=== PATIENT | female | born 1985 | race Caucasian/White ===

== ENCOUNTER 2016-11-08 09:11 | Inpatient (IN) | payer BC ==
[2016-11-08 17:05] VITALS: BMI 24.8
--- NOTE | 2016-11-08 17:42 | HP ---
CIWA Score - CIWA Score Nausea/Vomitin-Mild Nausea/No Vomiting Muscle Tremors: 4-Moderate,w/Arms Extend Anxiety: 4-Mod. Anxious/Guarded Agitation: 4-Moderately Restless Paroxysmal Sweats: 1-Minimal Palms Moist Orientation: 0-Oriented Tacttile Disturbances: 3-Moderate Itch/Numb/Burn Auditory Disturbances: 0-None Visual Disturbances: 0-None Headache: 1-Very Mild CIWA-Ar Total Score: 18 Admission ROS S - HPI Chief Complaint: withdrawal sx Allergies/Adverse Reactions: Allergies Allergy/AdvReac Type Severity Reaction Status Date / Time No Known Allergies Allergy Verified 11/08/16 11:10 History of Present Illness: 31 years old female with long history of alcohol dependence has hypothyroid and fibro myogia and depression and anxiety is admitted to detox Exam Limitations: No Limitations - Ebola screening Have you traveled outside of the country in the last 21 days: No Have you had contact with anyone from an Ebola affected area: No Have you been sick,other than usual withdrawal symptoms: No Do you have a fever: No - Review of Systems Constitutional: Chills, Changes in sleep, Weight Stable EENT: reports: No Symptoms Reported Respiratory: reports: No Symptoms reported Cardiac: reports: No Symptoms Reported GI: reports: Nausea, Poor Fluid Intake, Abdominal cramping : reports: No Symptoms Reported, Other (nephrotitis 2016) Musculoskeletal: reports: Joint Pain (right ankle), Muscle Weakness (right leg) Integumentary: reports: Pruritus (withdrawl) Neuro: reports: Seizure (pseudo seizure 1/month), Tremors Endocrine: reports: Intolerance to Heat Hematology: reports: No Symptoms Reported Psychiatric: reports: Judgement Intact, Orientated x3, Anxious Other Systems: Reviewed and Negative Patient History - Patient Medical History Hx Anemia: No Hx Asthma: No Hx Chronic Obstructive Pulmonary Disease (COPD): No Hx Cancer: No Hx Cardiac Disorders: No Hx Congestive Heart Failure: No Hx Hypertension: No Hx Hypercholesterolemia: No Hx Pacemaker: No HX Cerebrovascular Accident: No Hx Seizures: Yes (alcohol withdrawl related treated with neurologist) Hx Dementia: No Hx Diabetes: No Hx Gastrointestinal Disorders: No Hx Liver Disease: No Hx Genitourinary Disorders: No Hx Sexually Transmitted Disorders: No Hx Renal Disease (ESRD): No Hx Thyroid Disease: Yes Hx Human Immunodeficiency Virus (HIV): No Hx Hepatitis C: No Hx Depression: Yes Hx Suicide Attempt: Yes (took a friend's methadone a month ago) Hx Bipolar Disorder: No Hx Schizophrenia: No - Patient Surgical History Past Surgical History: Yes Hx Neurologic Surgery: No Hx Cataract Extraction: No Hx Cardiac Surgery: No Hx Lung Surgery: No Hx Breast Surgery: No Hx Breast Biopsy: No Hx Abdominal Surgery: Yes (removal of ovarian cyst in 2002 bilaterally) Hx Appendectomy: No (2011 gastric by pass) Hx Cholecystectomy: No Hx Genitourinary Surgery: No Hx Section: No Hx Orthopedic Surgery: No Hx Hysterectomy: No Other Surgical History: thyroid ca/thyroidectomy in 2002 Anesthesia Reaction: No - PPD History Previous Implant?: Yes Documented Results: Negative w/o proof Implanted On Prior R Admission?: No PPD to be Administered?: Yes - Reproductive History Patient is a Female of Child Bearing Age (11 -55 yrs old): Yes Last Menstrual Period: 11/08/16 Patient : No - Smoking Cessation Smoking history: Never smoked Have you smoked in the past 12 months: No Hx Chewing Tobacco Use: No Initiated information on smoking cessation: No - Substance & Tx. History Hx Alcohol Use: Yes Hx Substance Use: No Substance Use Type: Alcohol Hx Substance Use Treatment: Yes - Substances Abused Alcohol-vodka Route: Oral Frequency: Daily Amount used: 1-2 pts. volka Age of first use: 15 Date of Last Use: 11/08/16 Marijuana Route: Smoking Frequency: Daily Amount used: $5 Age of first use: 17 Date of Last Use: 11/07/16 Family Disease History - Family Disease History Family Disease History: Heart Disease: Mother Other Family History: only child Admission Physical Exam BHS - Vital Signs Vital Signs: Vital Signs - 24 hr 11/08/16 11/08/16 17:02 17:30 Temperature 96.4 F L 96.4 F L Pulse Rate 122 H 122 H Respiratory 20 20 Rate Blood Pressure 147/86 147/86 - Physical General Appearance: Yes: Appropriately Dressed, Alcohol on Breath, Tremorous, Irritable, Sweating, Anxious HEENTM: Yes: Hearing grossly Normal, Normal ENT Inspection, Normocephalic, Normal Voice Respiratory: Yes: Chest Non-Tender, Lungs Clear, Normal Breath Sounds, No Respiratory Distress, No Accessory Muscle Use Neck: Yes: Supple, Trachea in good position, Other (scar from partial thyroidectomy) Breast: Yes: Breasts Symetrical Cardiology: Yes: Regular Rhythm, S1, S2, Tachycardia Abdominal: Yes: Non Tender, Soft, Surgical Scar (gastric by pass 2011) Genitourinary: Yes: Within Normal Limits Back: Yes: Normal Inspection Musculoskeletal: Yes: Gait Steady (cane), Joint swelling (right ankle strain - 10/25/16) Extremities: Yes: Non-Tender, Tremors Neurological: Yes: Alert, Normal Response, Depressed Affect Integumentary: Yes: Warm Lymphatic: Yes: Within Normal Limits - Diagnostic (1) Alcohol dependence with uncomplicated withdrawal Current Visit: Yes Status: Acute (2) Hypothyroid Current Visit: Yes Status: Chronic Qualifiers: Hypothyroidism type: acquired Qualified Code(s): E03.9 - Hypothyroidism, unspecified (3) S/P gastric bypass Current Visit: Yes Status: Resolved (4) S/P removal of thyroid nodule Current Visit: Yes Status: Resolved (5) Fibromyalgia affecting multiple sites Current Visit: Yes Status: Chronic (6) Right ankle sprain Current Visit: Yes Status: Acute Qualifiers: Encounter type: subsequent encounter Involved ligament of ankle: unspecified ligament Qualified Code(s): S93.401D - Sprain of unspecified ligament of right ankle, subsequent encounter (7) Use of cane as ambulatory aid Current Visit: Yes Status: Acute (8) Depression (emotion) Current Visit: Yes Status: Suspected Qualifiers: Depression Type: dysthymia Qualified Code(s): F34.1 - Dysthymic disorder Cleared for Admission [facility] - Detox or Rehab [facility] Level of Care: Medically Managed Detox Regimen/Protocol: Librium [facility] Breath Alcohol Content Breath Alcohol Content: 0.210 Urine Pregancy Test - Result Urine Test Results: Negative- NO Line Present Urine Drug Screen - Results Drug Screen Negative: Yes
[2016-11-08] MEDS ORDERED: ACETAMINOPHEN 325 MG TABLET (FP) PO PRN (17:54)
[2016-11-08] MEDS ORDERED: MAG HYDROX/AL HYDROX/SIMETH 30 ML UNIT-DOSE CUP PO PRN (17:54)
[2016-11-08] MEDS ORDERED: MENTHOL/PHENOL 1 EACH UD MM PRN (17:54)
[2016-11-08] MEDS ORDERED: MAGNESIUM HYDROX 2400MG/30ML ORAL SUSPENSION 30 ML CUP PO PRN (17:54)
[2016-11-08] MEDS ORDERED: MAGNESIUM CITRATE 300 ML BOTTLE PO PRN (17:54)
[2016-11-08] MEDS ORDERED: P-EPHED 60MG/TRIPROLIDI 2.5MG TABLET PO PRN (17:54)
[2016-11-08] MEDS ORDERED: guaiFENesin/D-METHORPHAN HB 10 ML UNIT-DOSE CUPS PO PRN (17:54)
[2016-11-08] MEDS ORDERED: LOPERAMIDE HCL 2 MG CAPSULE PO PRN (17:54)
[2016-11-08] MEDS ORDERED: LEVOTHYROXINE NA 125 MCG TABLET (FP) PO SCH (18:15)
[2016-11-08] MEDS ORDERED: chlordiazePOXIDE HCL 25 MG CAPSULE PO ONE (19:00)
[2016-11-08] MEDS: diphenhydrAMINE HCL 50 MG CAPSULE PO PRN (22:29)
[2016-11-08] MEDS: chlordiazePOXIDE HCL 25 MG CAPSULE PO SCH (22:29)
[2016-11-08] MEDS: GABAPENTIN 400 MG CAPSULE (FP) PO SCH (22:29)
[2016-11-08] MEDS: THIAMINE HCL 100 MG TABLET (FP) PO SCH (22:30)
[2016-11-09] MEDS: GABAPENTIN 400 MG CAPSULE (FP) PO SCH ×3 (06:19→22:28)
[2016-11-09] MEDS: chlordiazePOXIDE HCL 25 MG CAPSULE PO SCH ×4 (06:19→22:32)
[2016-11-09] MEDS ORDERED: LEVOTHYROXINE NA 25 MCG TABLET (FP) ONE (06:20)
[2016-11-09] MEDS ORDERED: LEVOTHYROXINE NA 100 MCG TABLET (FP) ONE (06:20)
[2016-11-09] MEDS: LEVOTHYROXINE 25 MCG, LEVOTHYROXINE 100 MCG PO SCH (06:22)
[2016-11-09 10:18] LABS: MCH 31.5 pg (25.7-33.7); MCHC 33.9 g/dl (32.0-36.0); MEAN CELL VOLUME 92.9 fl (80-96); MEAN PLT VOLUME 8.7 fl (7.5-11.1); PLATELET COUNT 217 K/MM3 (134-434); RDW 13.8 % (11.6-15.6); WHITE BLOOD COUNT 6.7 K/mm3 (4.0-10.0)
[2016-11-09] MEDS: PRENATAL VITAMINS W/ FOLIC ACID TABLET (FP) PO SCH (10:51)
[2016-11-09] MEDS: cloNIDine HCL 0.1 MG TABLET PO PRN ×2 (10:51→22:27)
[2016-11-09 11:02] LABS: ALBUMIN 4.1 g/dl (3.4-5.0); ALK PHOS 64 U/L (45-117); ANION GAP 15 (8-16); BILIRUBIN,TOTAL 2.2 mg/dL (0.2-1.0); CALCIUM 9.9 mg/dL (8.5-10.1); CO2 28 mmol/L (21-32); CREATININE 0.8 mg/dL (0.55-1.02); GLUCOSE,RANDOM 103 mg/dL (74-106); SGOT/AST 43 U/L (15-37); SGPT/ALT 35 U/L (12-78); TOT PROT 7.2 g/dl (6.4-8.2)
[2016-11-09 12:25] LABS: HIV 1 & 2 AB NEGATIVE; HIV 1 AGp24 NEGATIVE
--- NOTE | 2016-11-09 13:47 | CONSULT ---
[facility] Psychiatric Consult - Data Date of interview: 11/09/16 Admission source: [facility] Identifying data: First admission to [facility] for this 31 y/o female seeking detox treatment on for alcohol and marijuana dependence.Patient is without children,domiciled,unemployed and supported by her " ex- ". Substance Abuse History: - Smoking Cessation. Smoking history: Never smoked. Have you smoked in the past 12 months: No. Hx Chewing Tobacco Use: No. Initiated information on smoking cessation: No. - Substance & Tx. History. Hx Alcohol Use: Yes. Hx Substance Use: No. Substance Use Type: Alcohol. Hx Substance Use Treatment: Yes. - Substances Abused. Alcohol-vodka. Route: Oral. Frequency: Daily. Amount used: 1-2 pts. volka. Age of first use: 15. Date of Last Use: 11/08/16. Marijuana. Route: Smoking. Frequency: Daily. Amount used: $5. Age of first use: 17. Date of Last Use: 11/07/16. Confirmed by patient. Medical History: Fibromyalgia,right ankle sprain,withdrawal-related and a history of surgeries (thyroidectomy in 2002 for cancer of thyroid,gastric bypass in 2011 and removal of bilateral ovarian cyst in 2002). Psychiatric History: First and only psychiatric hospitalization at [facility] ([facility] a month ago.Circumstances : overdose with heroin/mood dysregulation.Diagnosed with Anxiety Disorder and MDD.Was prescribed buspar ( non compliant) and neurontin.Ms Solitario is seeing a private psychiatrist for medication management (klonopin). Physical/Sexual Abuse/Trauma History: Not discussed. Additional Comment: Drug Screen is negative. Mental Status Exam - Mental Status Exam Alert and Oriented to: Time, Place, Person Cognitive Function: Good Patient Appearance: Unkempt, Disheveled Mood: Nervous, Withdrawn, Anxious Affect: Mood Congruent Patient Behavior: Fatigued, Appropriate, Cooperative Speech Pattern: Clear Voice Loudness: Normal Thought Process: Goal Oriented Thought Disorder: Not Present Hallucinations: Denies Suicidal Ideation: Denies Homicidal Ideation: Denies Insight/Judgement: Poor Sleep: Poorly, Difficulty falling asleep (wants trazodone) Appetite: Good Muscle strength/Tone: Normal Gait/Station: Other (uses a cane for ambulation; right leg in a splint) Psychiatric Findings - Problem List ([place]ylie 1, 2,3) (1) Alcohol dependence with uncomplicated withdrawal Current Visit: Yes Status: Acute (2) Substance-induced anxiety disorder Current Visit: Yes Status: Acute (3) Mood disorder Current Visit: Yes Status: Acute (4) Right ankle sprain Current Visit: Yes Status: Acute Qualifiers: Encounter type: subsequent encounter Involved ligament of ankle: unspecified ligament Qualified Code(s): S93.401D - Sprain of unspecified ligament of right ankle, subsequent encounter (5) Fibromyalgia affecting multiple sites Current Visit: Yes Status: Chronic (6) Hypothyroid Current Visit: Yes Status: Chronic Qualifiers: Hypothyroidism type: acquired Qualified Code(s): E03.9 - Hypothyroidism, unspecified (7) S/P gastric bypass Current Visit: Yes Status: Resolved (8) S/P removal of thyroid nodule Current Visit: Yes Status: Resolved (9) Use of cane as ambulatory aid Current Visit: Yes Status: Acute (10) Insomnia Current Visit: Yes Status: Acute - Initial Treatment Plan Initial Treatment Plan: Psychoeducation.Detoxification.Trazodone 50 mg po hs.Side effects/benefits discussed with patient.She agrees with careplan.Observation.
[2016-11-09] MEDS: IBUPROFEN 400 MG TABLET (FP) PO PRN ×2 (14:28→19:44)
[2016-11-09] MEDS: chlordiazePOXIDE HCL 25 MG CAPSULE PO PRN ×2 (14:28→19:45)
[2016-11-09] MEDS ORDERED: POTASSIUM CHLORIDE TABS 20 MEQ TABLET.ER (FP) PO ONE (14:38)
--- NOTE | 2016-11-09 14:38 | PN ---
[facility] CIWA - CIWA Score Nausea/Vomitin Muscle Tremors: 3 Anxiety: 3 Agitation: 2 Paroxysmal Sweats: 1-Minimal Palms Moist Orientation: 0-Oriented Tacttile Disturbances: 1-Very Mild Itch/Numbness Auditory Disturbances: 1-Very Mild Visual Disturbances: 1-Very Mild Sensitivity Headache: 2-Mild CIWA-Ar Total Score: 17 BHS Progress Note (SOAP) Subjective: ALERT,IRRITABLE,ANXIOUS,INTERRUPTED SLEEP,TREMOR,PAIN IN THE BODY AND BACK Objective: 11/09/16 14:34 Vital Signs Temperature 98.6 F 11/09/16 10:40 Pulse Rate 88 11/09/16 10:40 Respiratory Rate 16 11/09/16 10:40 Blood Pressure 141/85 11/09/16 10:40 O2 Sat by Pulse Oximetry (%) EKG SINUS RHYTHM WITH SINUS ARRHYTHMIA Laboratory Last Values WBC 6.7 K/mm3 (4.0-10.0) 11/09/16 07:40 RBC 4.63 M/mm3 (3.60-5.2) 11/09/16 07:40 Hgb 14.6 GM/dL (10.7-15.3) 11/09/16 07:40 Hct 43.0 % (32.4-45.2) 11/09/16 07:40 MCV 92.9 fl (80-96) 11/09/16 07:40 MCHC 33.9 g/dl (32.0-36.0) 11/09/16 07:40 RDW 13.8 % (11.6-15.6) 11/09/16 07:40 Plt Count 217 K/MM3 (134-434) 11/09/16 07:40 MPV 8.7 fl (7.5-11.1) 11/09/16 07:40 Sodium 138 mmol/L (136-145) 11/09/16 07:40 Potassium 3.2 mmol/L (3.5-5.1) L 11/09/16 07:40 Chloride 95 mmol/L (98-107) L 11/09/16 07:40 Carbon Dioxide 28 mmol/L (21-32) 11/09/16 07:40 Anion Gap 15 (8-16) 11/09/16 07:40 BUN 8 mg/dL (7-18) 11/09/16 07:40 Creatinine 0.8 mg/dL (0.55-1.02) 11/09/16 07:40 Creat Clearance w eGFR > 60 (>60) 11/09/16 07:40 Random Glucose 103 mg/dL (74-106) 11/09/16 07:40 Calcium 9.9 mg/dL (8.5-10.1) 11/09/16 07:40 Total Bilirubin 2.2 mg/dL (0.2-1.0) H 11/09/16 07:40 AST 43 U/L (15-37) H 11/09/16 07:40 ALT 35 U/L (12-78) 11/09/16 07:40 Alkaline Phosphatase 64 U/L (45-117) 11/09/16 07:40 Total Protein 7.2 g/dl (6.4-8.2) 11/09/16 07:40 Albumin 4.1 g/dl (3.4-5.0) 11/09/16 07:40 TSH 10.40 uIU/ml (0.358-3.74) H 11/09/16 07:40 RPR Titer Nonreactive (NONREACTIVE) 11/09/16 07:40 HIV 1&2 Antibody Screen Negative 11/09/16 07:40 HIV P24 Antigen Negative 11/09/16 07:40 Assessment: 11/09/16 14:36 WITHDRAWAL SYMPTOM Plan: CONTINUE DETOX,K IS 3.2 HYPOKALEMIA,K DUR 20 MEQ PO NOW THEN BID,REPEAT BMP ON Fri11/11/16
--- NOTE | 2016-11-09 14:43 | PN ---
S Progress Note Note: ADDENDUM BILIRUBIN 2.2,K 3.2,KDUR REPLACEMENT,REPEAT CMP ON Fri11/11/16
[2016-11-09] MEDS: hydrOXYzine PAMOATE 50 MG CAPSULE (FP) PO PRN (20:10)
[2016-11-09] MEDS: THIAMINE HCL 100 MG TABLET (FP) PO SCH (22:27)
[2016-11-09] MEDS: POTASSIUM CHLORIDE TABS 20 MEQ TABLET.ER (FP) PO SCH (22:28)
[2016-11-09] MEDS: traZODone HCL 50 MG TABLET (FP) PO SCH (22:29)
[2016-11-09] MEDS: diphenhydrAMINE HCL 50 MG CAPSULE PO PRN (22:31)
[2016-11-09 22:41] LABS: URINE APPEARANCE SLCLOUDY; URINE BILIRUBIN NEGATIVE (NEGATIVE); URINE COLOR AMBER; URINE GLUCOSE (UA) NEGATIVE (NEGATIVE); URINE KETONE TRACE (NEGATIVE); URINE LEUK ESTERASE NEGATIVE (NEGATIVE); URINE NITRITE NEGATIVE (NEGATIVE); URINE UROBILINOGEN NEGATIVE E.U./dl (0.2-1.0)
[2016-11-09 22:48] LABS: URINE BLOOD 3+ (NEGATIVE); URINE PROTEIN 1+ (NEGATIVE)
[2016-11-09 22:50] LABS: URINE BACTERIA MANY /hpf (NONE SEEN); URINE HYALINE CAST 2 /lpf; URINE MUCUS MANY; URINE RBC 1 /hpf (0-3); URINE WBC 6 /hpf (3-5)
[2016-11-10] MEDS: chlordiazePOXIDE HCL 25 MG CAPSULE PO SCH ×3 (05:45→17:31)
[2016-11-10] MEDS: GABAPENTIN 400 MG CAPSULE (FP) PO SCH ×3 (05:46→22:29)
[2016-11-10] MEDS ORDERED: LEVOTHYROXINE NA 25 MCG TABLET (FP) ONE (05:47)
[2016-11-10] MEDS: IBUPROFEN 400 MG TABLET (FP) PO PRN ×2 (05:47→19:31)
[2016-11-10] MEDS ORDERED: LEVOTHYROXINE NA 100 MCG TABLET (FP) ONE (05:47)
[2016-11-10] MEDS: LEVOTHYROXINE 25 MCG, LEVOTHYROXINE 100 MCG PO SCH (06:14)
[2016-11-10] MEDS: hydrOXYzine PAMOATE 50 MG CAPSULE (FP) PO PRN (08:52)
[2016-11-10] MEDS: chlordiazePOXIDE HCL 25 MG CAPSULE PO PRN ×3 (08:52→19:31)
[2016-11-10] MEDS: PRENATAL VITAMINS W/ FOLIC ACID TABLET (FP) PO SCH (10:21)
[2016-11-10] MEDS: POTASSIUM CHLORIDE TABS 20 MEQ TABLET.ER (FP) PO SCH ×2 (10:21→22:29)
--- NOTE | 2016-11-10 11:53 | PN ---
[facility] CIWA - CIWA Score Nausea/Vomitin Muscle Tremors: 3 Anxiety: 3 Agitation: 2 Paroxysmal Sweats: 1-Minimal Palms Moist Orientation: 0-Oriented Tacttile Disturbances: 1-Very Mild Itch/Numbness Auditory Disturbances: 1-Very Mild Visual Disturbances: 1-Very Mild Sensitivity Headache: 2-Mild CIWA-Ar Total Score: 17 BHS Progress Note (SOAP) Subjective: ALERT,IRRITABLE,ANXIOUS,INTERRUPTED SLEEP,TREMOR Objective: 11/10/16 11:51 Vital Signs Temperature 98.1 F 11/10/16 10:24 Pulse Rate 118 H 11/10/16 10:24 Respiratory Rate 20 11/10/16 10:24 Blood Pressure 114/90 11/10/16 10:24 O2 Sat by Pulse Oximetry (%) Laboratory Results - last 24 hr 11/09/16 11/09/16 11/09/16 07:40 07:40 22:07 Urine Color Anna Urine Appearance Slcloudy Urine pH 6.0 Ur Specific Leonard 1.010 Urine Protein 1+ H Urine Glucose (UA) Negative Urine Ketones Trace H Urine Blood 3+ H Urine Nitrite Negative Urine Bilirubin Negative Urine Urobilinogen Negative Ur Leukocyte Esterase Negative Urine RBC 1 Urine WBC 6 Ur Epithelial Cells Rare Urine Bacteria Many Hyaline Casts 2 Urine Mucus Many RPR Titer Nonreactive HIV 1&2 Antibody Screen Negative HIV P24 Antigen Negative Assessment: 11/10/16 11:52 WITHDRAWAL SYMPTOM Plan: CONTINUE DETOX,ENCOURAGE ORAL FLUID
--- NOTE | 2016-11-10 12:20 | PN ---
[facility] Progress Note Note: ADDENDUM HISTORY OF PANCREATITIS IN THE PAST,FREQUENCY ON URINATION,MILD PAIN IN EPIGASTRIUM, CBC,CMP,AMYLASE,LIPASE IN AM,REPEAT UA,PSYCHIATRIC EVALUATION FOR MEDICATIONS REQUESTED BY PATIENT
[2016-11-10 19:43] LABS: URINE APPEARANCE SLCLOUDY; URINE BILIRUBIN NEGATIVE (NEGATIVE); URINE COLOR LTYELLOW; URINE GLUCOSE (UA) NEGATIVE (NEGATIVE); URINE KETONE NEGATIVE (NEGATIVE); URINE NITRITE NEGATIVE (NEGATIVE); URINE PROTEIN NEGATIVE (NEGATIVE); URINE UROBILINOGEN NEGATIVE E.U./dl (0.2-1.0)
[2016-11-10 19:52] LABS: URINE BLOOD 2+ (NEGATIVE); URINE LEUK ESTERASE 1+ (NEGATIVE)
[2016-11-10 20:11] LABS: URINE MUCUS RARE; URINE RBC 11 /hpf (0-3); URINE WBC 8 /hpf (3-5)
[2016-11-10] MEDS: chlordiazePOXIDE 5 MG CAPSULE PO SCH (22:29)
[2016-11-10] MEDS: THIAMINE HCL 100 MG TABLET (FP) PO SCH (22:29)
[2016-11-10] MEDS: cloNIDine HCL 0.1 MG TABLET PO PRN (22:29)
[2016-11-10] MEDS: traZODone HCL 50 MG TABLET (FP) PO SCH (22:29)
[2016-11-11] MEDS ORDERED: LEVOTHYROXINE NA 25 MCG TABLET (FP) ONE (05:01)
[2016-11-11] MEDS ORDERED: LEVOTHYROXINE NA 100 MCG TABLET (FP) ONE (05:02)
[2016-11-11] MEDS: GABAPENTIN 400 MG CAPSULE (FP) PO SCH ×3 (05:35→22:19)
[2016-11-11] MEDS: chlordiazePOXIDE 5 MG CAPSULE PO SCH ×3 (05:36→16:56)
[2016-11-11] MEDS: IBUPROFEN 400 MG TABLET (FP) PO PRN (05:38)
[2016-11-11] MEDS: LEVOTHYROXINE 25 MCG, LEVOTHYROXINE 100 MCG PO SCH (06:16)
[2016-11-11] MEDS: hydrOXYzine PAMOATE 50 MG CAPSULE (FP) PO PRN ×2 (07:45→19:38)
--- NOTE | 2016-11-11 08:46 | PN ---
[facility] Progress Note (SOAP) Subjective: interrupted sleep,severe anxiety Objective: 11/11/16 08:44 Vital Signs Temperature 97.2 F L 11/11/16 06:00 Pulse Rate 72 11/11/16 06:00 Respiratory Rate 16 11/11/16 06:00 Blood Pressure 98/63 11/11/16 06:00 O2 Sat by Pulse Oximetry (%) Laboratory Tests 11/09/16 11/09/16 11/09/16 07:40 07:40 07:40 WBC 6.7 RBC 4.63 Hgb 14.6 Hct 43.0 MCV 92.9 MCHC 33.9 RDW 13.8 Plt Count 217 MPV 8.7 Sodium 138 Potassium 3.2 L Chloride 95 L Carbon Dioxide 28 Anion Gap 15 BUN 8 Creatinine 0.8 Creat Clearance w eGFR > 60 Random Glucose 103 Calcium 9.9 Total Bilirubin 2.2 H AST 43 H ALT 35 Alkaline Phosphatase 64 Total Protein 7.2 Albumin 4.1 TSH 10.40 H Urine Color Urine Appearance Urine pH Ur Specific [place] Urine Protein Urine Glucose (UA) Urine Ketones Urine Blood Urine Nitrite Urine Bilirubin Urine Urobilinogen Ur Leukocyte Esterase Urine RBC Urine WBC Ur Epithelial Cells Urine Bacteria Hyaline Casts Urine Mucus RPR Titer HIV 1&2 Antibody Screen Negative HIV P24 Antigen Negative 11/09/16 11/09/16 11/10/16 07:40 22:07 Unknown WBC RBC Hgb Hct MCV MCHC RDW Plt Count MPV Sodium Potassium Chloride Carbon Dioxide Anion Gap BUN Creatinine Creat Clearance w eGFR Random Glucose Calcium Total Bilirubin AST ALT Alkaline Phosphatase Total Protein Albumin TSH Urine Color Anna Ltyellow Urine Appearance Slcloudy Slcloudy Urine pH 6.0 6.0 Ur Specific [place] 1.010 <= 1.005 Urine Protein 1+ H Negative Urine Glucose (UA) Negative Negative Urine Ketones Trace H Negative Urine Blood 3+ H 2+ H Urine Nitrite Negative Negative Urine Bilirubin Negative Negative Urine Urobilinogen Negative Negative Ur Leukocyte Esterase Negative 1+ H Urine RBC 1 11 Urine WBC 6 8 Ur Epithelial Cells Rare Few Urine Bacteria Many Hyaline Casts 2 Urine Mucus Many Rare RPR Titer Nonreactive HIV 1&2 Antibody Screen HIV P24 Antigen pt aox3 , crying, upset, anxiety 11/11/16 11:25 11/11/16 11:25 11/11/16 11:26 Assessment: 11/11/16 11:24 WITHDRAWAL SX;S ANXIETY RT ANKLE SPRAIN HYPOTHYROIDISM 11/11/16 11:25 11/11/16 11:26 11/11/16 11:27 Plan: CONT. DETOXX INCREASE FLUIDS PYSCH RE-EVAL. D/C IN AM
[2016-11-11] MEDS: POTASSIUM CHLORIDE TABS 20 MEQ TABLET.ER (FP) PO SCH ×2 (10:06→22:19)
[2016-11-11] MEDS: PRENATAL VITAMINS W/ FOLIC ACID TABLET (FP) PO SCH (10:06)
[2016-11-11 10:08] LABS: ALBUMIN 4.3 g/dl (3.4-5.0); ANION GAP 9 (8-16); BILIRUBIN,TOTAL 1.1 mg/dL (0.2-1.0); CALCIUM 10.3 mg/dL (8.5-10.1); CO2 30 mmol/L (21-32); GLUCOSE,RANDOM 115 mg/dL (74-106); MCH 31.8 pg (25.7-33.7); MCHC 33.6 g/dl (32.0-36.0); MEAN CELL VOLUME 94.7 fl (80-96); MEAN PLT VOLUME 9.2 fl (7.5-11.1); PLATELET COUNT 186 K/MM3 (134-434); RDW 14.1 % (11.6-15.6); SGOT/AST 73 U/L (15-37); SGPT/ALT 53 U/L (12-78); TOT PROT 7.3 g/dl (6.4-8.2)
[2016-11-11 10:09] LABS: ALK PHOS 56 U/L (45-117)
[2016-11-11 10:42] LABS: AMYLASE 75 U/L (25-115)
[2016-11-11] MEDS ORDERED: HALOPERIDOL 5 MG TABLET (FP) PO STA (11:35)
[2016-11-11] MEDS ORDERED: diphenhydrAMINE HCL 50 MG CAPSULE PO STA (11:36)
[2016-11-11] MEDS ORDERED: diphenhydrAMINE HCL 25 MG CAPSULE (FP) PO ONE (11:47)
--- NOTE | 2016-11-11 11:47 | PN ---
Psychiatric Progress Note Vital Signs: Vital Signs Period Temp Pulse Resp BP Sys/Antunez Pulse Ox Last 24 Hr 97.2 F-98.2 F 72-142 16-20 98-133/63-86 Date of Session: 11/11/16 Chief Complaint:: Agitation, insomnia HPI: Patient reprots insomnia, agitation, anxiety , crying spells, placement issues and personal problems, asking ti change Trazodone to 200mg po qhs she has been taking prior to admission with good response, asking pharmacological interventtion to reduce ansietya dnagitayion she has Current Medications: Active Medications Generic Name Dose Route Start Last Admin Trade Name Freq PRN Reason Stop Dose Admin Acetaminophen 650 mg 11/08/16 17:54 Tylenol - PO Q4H PRN FEVER OR PAIN Al Hydroxide/Mg Hydroxide 30 ml 11/08/16 17:54 Mylanta Oral Suspension - PO Q6H PRN DYSPEPSIA Chlordiazepoxide HCl 10 mg 11/11/16 23:00 Librium - PO 11/12/16 17:01 [id number] SARITHA Chlordiazepoxide HCl 25 mg 11/08/16 17:54 11/10/16 19:31 Librium - PO 11/11/16 17:53 25 mg Q4H PRN Administration WITHDRAWAL(CONT SUBST) Chlordiazepoxide HCl 15 mg 11/10/16 23:00 11/11/16 10:06 Librium - PO 11/11/16 17:01 15 mg [id number] SARITHA Administration Clonidine 0.1 mg 11/08/16 17:56 11/10/16 22:29 Catapres - PO 0.1 mg Q6H PRN Administration HYPERTENSION Diphenhydramine HCl 50 mg 11/08/16 22:00 11/09/16 22:31 Benadryl - PO 50 mg HSMR1 PRN Administration INSOMNIA Diphenhydramine HCl 50 mg 11/11/16 11:36 Benadryl - PO 11/11/16 11:37 NOW STA Eucalyptus/Menthol/Phenol/Sorbitol 1 each 11/08/16 17:54 Cepastat Lozenge - MM Q4H PRN SORE THROAT Gabapentin 400 mg 11/08/16 22:00 11/11/16 05:35 Neurontin - PO 400 mg TID SARITHA Administration Guaifenesin 10 ml 11/08/16 17:54 Robitussin Dm - PO Q6H PRN COUGH Haloperidol 5 mg 11/11/16 11:35 Haldol - PO 11/11/16 11:36 NOW STA Haloperidol 1 mg 11/11/16 11:36 Haldol - PO Q4HWA PRN AGITATION Hydroxyzine Pamoate 50 mg 11/09/16 20:01 11/11/16 07:45 Vistaril - PO 50 mg Q4H PRN Administration AGITATION Ibuprofen 400 mg 11/08/16 17:54 11/11/16 05:38 Motrin - PO 400 mg Q6H PRN Administration SEVERE PAIN Levothyroxine Sodium 25 mcg/ 125 mcg 11/09/16 07:00 11/11/16 06:16 Levothyroxine Sodium 100 mcg PO 125 mcg DAILY@0700 SARITHA Administration Loperamide HCl 4 mg 11/08/16 17:54 Imodium - PO Q6H PRN DIARRHEA Magnesium Citrate 300 ml 11/08/16 17:54 Citroma - PO Q48H PRN CONSTIPATION Magnesium Hydroxide 30 ml 11/08/16 17:54 Milk Of Magnesia - PO DAILY PRN CONSTIPATION Potassium Chloride 20 meq 11/09/16 22:00 11/11/16 10:06 K-Dur - PO 20 meq BID SARITHA Administration Multivit/Folic Acid/Iron 1 tab 11/09/16 10:00 11/11/16 10:06 Vitamins (Sjr) - PO 1 tab DAILY SARITHA Administration Pseudoephedrine/Triprolidine 1 combo 11/08/16 17:54 Actifed - PO TID PRN NASAL CONGESTION Thiamine HCl 100 mg 11/08/16 22:00 11/10/16 22:29 Vitamin B1 - PO 100 mg HS SAIRTHA Administration Trazodone HCl 200 mg 11/11/16 11:40 Desyrel - PO HS SARITHA Medication(s) Change(s): Haldol 5mg po stat. Benadryl 50mg p[o stat. Haldol 1mg po prn q4 for agitsations. Trazodone 200mg po qhs Mental Status Exam - Mental Status Exam Alert and Oriented to: Person Cognitive Function: Fair Patient Appearance: Well Groomed Mood: Nervous, Anxious, Irritable Affect: Mood Congruent Patient Behavior: Crying, Fearful, Cooperative Speech Pattern: Appropriate Voice Loudness: Normal Thought Process: Goal Oriented Thought Disorder: Being Controlled Hallucinations: Denies Suicidal Ideation: Denies Homicidal Ideation: Denies Insight/Judgement: Fair Sleep: Difficulty falling asleep Appetite: Weight gain Muscle strength/Tone: Mild Hypertonicity Gait/Station: Other Additional Comments: Haldol 5mg po stat. Benadryl 50mg p[o stat. Haldol 1mg po prn q4 for agitsations. Trazodone 200mg po qhs Psychiatric Treatment Plan - Problem List (1) Alcohol dependence with uncomplicated withdrawal Current Visit: Yes (2) Mood disorder Current Visit: Yes (3) Substance-induced anxiety disorder Current Visit: Yes (4) Use of cane as ambulatory aid Current Visit: Yes (5) Hypothyroid Current Visit: Yes Qualifiers: Hypothyroidism type: acquired Qualified Code(s): E03.9 - Hypothyroidism, unspecified (6) Alcohol-induced anxiety disorder Current Visit: Yes Initial treatment plan: Haldol 5mg po stat. Benadryl 50mg p[o stat. Haldol 1mg po prn q4 for agitsations. Trazodone 200mg po qhs
--- NOTE | 2016-11-11 13:05 | EKG ---
Test Reason : Blood Pressure : / mmHG Vent. Rate : 094 BPM Atrial Rate : 094 BPM P-R Int : 124 ms QRS Dur : 074 ms QT Int : 354 ms P-R-T Axes : 062 070 062 degrees QTc Int : 442 ms NORMAL SINUS RHYTHM WITH SINUS ARRHYTHMIA NORMAL ECG NO PREVIOUS ECGS AVAILABLE Confirmed by DREW MYERS, ABIMAEL ([id number]) on 11/11/2016 1:05:41 PM Referred By: Confirmed By:ABIMAEL RUSSELL MD
--- NOTE | 2016-11-11 13:05 | EKG ---
Test Reason : Blood Pressure : / mmHG Vent. Rate : 076 BPM Atrial Rate : 076 BPM P-R Int : 134 ms QRS Dur : 086 ms QT Int : 410 ms P-R-T Axes : 053 066 046 degrees QTc Int : 461 ms NORMAL SINUS RHYTHM WITH SINUS ARRHYTHMIA NORMAL ECG WHEN COMPARED WITH ECG OF 08-NOV-2016 18:26, NO SIGNIFICANT CHANGE WAS FOUND Confirmed by ABIMAEL RUSSELL MD ([id number]) on 11/11/2016 1:04:28 PM Referred By: Confirmed By:ABIMAEL RUSSELL MD
[2016-11-11] MEDS: HALOPERIDOL 1 MG TABLET (FP) PO PRN ×2 (16:54→22:19)
[2016-11-11] MEDS ORDERED: traZODone HCL 100 MG TABLET (FP) PO SCH (22:00)
[2016-11-11] MEDS: THIAMINE HCL 100 MG TABLET (FP) PO SCH (22:18)
[2016-11-11] MEDS: chlordiazePOXIDE HCL 10 MG CAPSULE PO SCH (22:19)
[2016-11-12] MEDS ORDERED: LEVOTHYROXINE NA 25 MCG TABLET (FP) ONE (03:46)
[2016-11-12] MEDS ORDERED: LEVOTHYROXINE NA 100 MCG TABLET (FP) ONE (03:47)
[2016-11-12] MEDS: chlordiazePOXIDE HCL 10 MG CAPSULE PO SCH (05:40)
[2016-11-12] MEDS: GABAPENTIN 400 MG CAPSULE (FP) PO SCH (05:40)
[2016-11-12] MEDS: HALOPERIDOL 1 MG TABLET (FP) PO PRN (05:43)
[2016-11-12] MEDS: LEVOTHYROXINE 25 MCG, LEVOTHYROXINE 100 MCG PO SCH (06:58)
[2016-11-12 07:11] VITALS: BP 103/76; PULSE 82; TEMP 98.1
[2016-11-12] MEDS: hydrOXYzine PAMOATE 50 MG CAPSULE (FP) PO PRN (08:56)
--- NOTE | 2016-11-12 09:12 | DS ---
[facility] Detox Discharge Summary Admission Date: 11/08/16 Discharge Date: 11/12/16 - History Present History: Alcohol Dependence - Physical Exam Results Vital Signs: Vital Signs Temperature 98.1 F 11/12/16 06:00 Pulse Rate 82 11/12/16 06:00 Respiratory Rate 18 11/12/16 06:00 Blood Pressure 103/76 11/12/16 06:00 O2 Sat by Pulse Oximetry (%) - Treatment Hospital Course: Detox Protocol Followed, Detoxed Safely, Responded well, Discharged Condition Good, Rehab Referral Accepted - Medication Discharge Medications: Ambulatory Orders Duloxetine HCl [Cymbalta -] 60 mg PO BID 11/08/16 Gabapentin [Neurontin -] 400 mg PO Q8H 11/08/16 Levothyroxine [Synthroid -] 125 mcg PO DAILY 11/08/16 Trazodone HCl [Desyrel -] 150 mg PO HS 11/08/16 Trazodone HCl [Desyrel -] 50 mg PO HS #30 tablet 11/09/16 Trazodone HCl [Desyrel -] 200 mg PO HS #30 tablet 11/11/16 Trazodone HCl [Desyrel -] 200 mg PO HS #30 tablet 11/11/16 - Diagnosis (1) Alcohol dependence with uncomplicated withdrawal Current Visit: Yes Status: Chronic (2) Alcohol-induced anxiety disorder Current Visit: Yes Status: Acute (3) Insomnia Current Visit: Yes Status: Acute (4) Mood disorder Current Visit: Yes Status: Acute (5) Right ankle sprain Current Visit: Yes Status: Acute Qualifiers: Encounter type: subsequent encounter Involved ligament of ankle: unspecified ligament Qualified Code(s): S93.401D - Sprain of unspecified ligament of right ankle, subsequent encounter (6) Substance-induced anxiety disorder Current Visit: Yes Status: Acute (7) Use of cane as ambulatory aid Current Visit: Yes Status: Chronic (8) Fibromyalgia affecting multiple sites Current Visit: Yes Status: Chronic (9) Hypothyroid Current Visit: Yes Status: Chronic Qualifiers: Hypothyroidism type: acquired Qualified Code(s): E03.9 - Hypothyroidism, unspecified (10) Depression (emotion) Current Visit: Yes Status: Suspected Qualifiers: Depression Type: dysthymia Qualified Code(s): F34.1 - Dysthymic disorder (11) S/P gastric bypass Current Visit: Yes Status: Resolved (12) S/P removal of thyroid nodule Current Visit: Yes Status: Resolved - AMA Did Patient Leave Against Medical Advice: No
== END 2016-11-12 09:11 | disposition home or self-care (01) | DRG 897 ==
LOC: YASAS 09:11 → Y6N 18:26
PROVIDERS: ADMIT Internal Medicine Addiction Medicine; ATTEND Internal Medicine Addiction Medicine
PROC: HZ2ZZZZ Detoxification Services for Substance Abuse Treatment (ICD-10-PCS; principal; 2016-11-08)
DX: F10.230 Alcohol dependence with withdrawal, uncomplicated (principal); F19.280 Other psychoactive substance dependence with psychoactive substance-induced anxiety disorder; F10.280 Alcohol dependence with alcohol-induced anxiety disorder; F41.9 Anxiety disorder, unspecified; F39 Unspecified mood [affective] disorder; F34.1 Dysthymic disorder; E89.0 Postprocedural hypothyroidism; G47.00 Insomnia, unspecified; G40.909 Epilepsy, unspecified, not intractable, without status epilepticus; I49.9 Cardiac arrhythmia, unspecified; R26.2 Difficulty in walking, not elsewhere classified; R00.0 Tachycardia, unspecified; M79.7 Fibromyalgia; R35.0 Frequency of micturition; Z85.850 Personal history of malignant neoplasm of thyroid; Z98.84 Bariatric surgery status; Z87.19 Personal history of other diseases of the digestive system; Z91.5 Personal history of self-harm; S93.401D Sprain of unspecified ligament of right ankle, subsequent encounter; X58.XXXD Exposure to other specified factors, subsequent encounter
CPT/HCPCS: 36415; 80053; 81003; 81015; 82150; 83690; 84443; 85027; 86593; 87389; 93005; 93010